=== PATIENT | female | born 1955 ===

== ENCOUNTER → 2024-08-26 | Outpatient (CLI) | payer OTHER ==
[2024-09-01 20:38] LABS: HSV 1 SUBTYPE BY PCR Not Detected; HSV 2 SUBTYPE BY PCR Not Detected; HSV SUBTYPE SOURCE RIGHT THIGH
[2024-09-01 22:27] LABS: VARICELLA-ZOSTER VIRUS BY PCR Not Detected; VARICELLA-ZOSTER VIRUS SOURCE RIGHT THIGH
== END | disposition home or self-care (01) ==
LOC: LAB 07:44 → LAB SHORT 07:44
PROVIDERS: Physician Assistant Medical
DX: Z12.83 Encounter for screening for malignant neoplasm of skin (principal); L08.9 Local infection of the skin and subcutaneous tissue, unspecified; L57.0 Actinic keratosis; D22.61 Melanocytic nevi of right upper limb, including shoulder; D22.72 Melanocytic nevi of left lower limb, including hip; D22.5 Melanocytic nevi of trunk; D22.62 Melanocytic nevi of left upper limb, including shoulder; L82.1 Other seborrheic keratosis; L81.4 Other melanin hyperpigmentation; L57.8 Other skin changes due to chronic exposure to nonionizing radiation; R21 Rash and other nonspecific skin eruption; Z71.89 Other specified counseling; Z72.0 Tobacco use
CPT/HCPCS: 87529; 87798